=== PATIENT | female | born 1955 | race Caucasian/White ===

== ENCOUNTER 2017-08-18 14:08 | Outpatient (CLI) | payer BC ==
[~2017-08-18] VITALS: Ht 160 cm; Wt 65.9 kg
[~2017-08-18 14:08] MED LIST: ADRIAMYCIN; CALAN SR180 MG PO; CALTRATE-600 W600 MG PO; COMPAZINE 110 MG/TAB PO; CRESTOR10 MG PO; CRESTOR20 MG PO; CYTOXAN; DEXAMETHASONE4 MG PO; EMEND; FEMARA PO; FERROUS SULFAT325 MG PO; FISH OIL CONC1000 MG PO; LEVAQUIN 5500 MG/TAB PO; MVI; MVI PO; NEULASTA6 MG/0.6 M SC; SYNTHROID0.05 MG/TA PO; TAXOTERE; TRIAMTERENE AND1 TA1 PO; VISION FORMULA; VITAMIN C500 MG PO; ZETIA10 MG PO; ZOFRAN 8MG8 MG PO; ZOMETA4 MG/5 ML IV
[2017-08-18] MEDS ORDERED: HCTZ 25MG TAB25 MG PO (14:38)
[2017-08-18] MEDS ORDERED: LOPRESSOR 225 MG/TAB PO (14:38)
[2017-08-18] MEDS ORDERED: PRINIVIL20 MG PO (14:39)
[2017-08-18] MEDS ORDERED: EFFEXOR 75M75 MG/TAB PO (14:39)
[2017-08-18] MEDS ORDERED: SYNTHROID0.075 MG/T PO (14:40)
[2017-08-18] MEDS ORDERED: IBRANCE125 MG PO (14:41)
[2017-08-18] MEDS ORDERED: FASLODEX250 MG/5 M IM (14:43)
[2017-08-18 15:00] VITALS: BP 118/64; PULSE 72; TEMP 98
== END 2017-08-18 16:50 | disposition home health service (06) ==
LOC: EUO 14:08
DX: C50.012 Malignant neoplasm of nipple and areola, left female breast (principal); R11.10 Vomiting, unspecified; E86.0 Dehydration
CPT/HCPCS: J7030

== ENCOUNTER 2018-09-16 19:57 | Emergency (ER) | payer BC ==
[~2018-09-16] VITALS: Ht 160 cm; Wt 70.5 kg
[~2018-09-16 19:57] MED LIST changes: +EFFEXOR 75M75 MG/TAB PO; +FASLODEX250 MG/5 M IM; +HCTZ 25MG TAB25 MG PO; +IBRANCE125 MG PO; +LOPRESSOR 225 MG/TAB PO; +PRINIVIL20 MG PO; +SYNTHROID0.075 MG/T PO
[2018-09-16 20:06] VITALS: TEMP 98
[2018-09-16 20:32] LABS: BASO # 0.1 (0.0-0.2); BASO % 0.8 % (0.0-2.0); EOS # 0.1 (0.0-0.7); GRAN # 3.3 (1.4-6.5); GRAN % 50.6 % (42.2-75.2); HEMATOCRIT 39.7 % (37.0-47.0); HEMOGLOBIN 14.3 g/dl (12.5-16.0); LYMPH # 2.4 (1.2-3.4); LYMPH % 35.9 % (20.0-51.0); MEAN CELL VOLUME 107 fl (80.0-100.0); MEAN CORPUSCULAR HEMOGLOBIN 39 pg (27.0-31.0); MEAN CORPUSCULAR HGB CONC 36 g/dl (33.0-37.0); MEAN PLATELET VOLUME 9.2 fl (7.4-10.4); MONO # 0.7 (0.1-0.6); MONO % 10.4 % (1.7-9.3); PLATELET COUNT 230 K/mm3 (130-400); REDCELL DISTRIBUTION WIDTH-CV 13.8 % (11.5-14.5)
[2018-09-16 20:36] LABS: INR 0.9 (0.8-3.0); PROTHROMBIN TIME 10.1 SECONDS (9.7-12.8)
[2018-09-16 20:39] LABS: ALANINE AMINOTRANSFERASE 61 U/L (9-52); ALBUMIN 4.8 gm/dL (3.5-5.0); ALKALINE PHOSPHATASE 81 U/L (50-136); ANION GAP 10 mmol/L (7-16); AST,SGOT 56 U/L (15-37); BILIRUBIN,TOTAL 0.4 mg/dL (0.0-1.0); BLOOD UREA NITROGEN 20 mg/dL (7-17); CARBON DIOXIDE 31 mmol/L (22-30); CHLORIDE 96 mmol/L (98-107); CREATININE, serum 0.61 mg/dL (0.52-1.25); GLUCOSE 128 mg/dL (74-106); POTASSIUM 3.3 mmol/L (3.4-5.0); SODIUM 137 mmol/L (137-145)
[2018-09-16 20:50] LABS: TROPONIN-I < 0.012 ng/mL (0.000-0.034)
[2018-09-16 21:16] LABS: TSH w REFLEX 0.168 uIU/mL (0.465-4.680)
[2018-09-16] MEDS ORDERED: MASON NATURAL1200 MG PO (21:27)
[2018-09-16] MEDS ORDERED: EPA FISH OIL1 SGL PO (21:28)
[2018-09-16] MEDS ORDERED: MULTIVITAMIN FO1 CAP PO (21:30)
[2018-09-16] MEDS ORDERED: VERELAN240 MG PO (21:31)
[2018-09-16] MEDS ORDERED: ALPHA LIPOIC A200 M2 PO (21:32)
[2018-09-16] MEDS ORDERED: BIOTIN 0.3 MG-21 TAB (21:33)
[2018-09-16] MEDS ORDERED: ASPIRIN 81M81 MG/TA2 PO (21:33)
[2018-09-16] MEDS ORDERED: COENZYME Q-10100 M1 PO (21:34)
[2018-09-16] MEDS ORDERED: XELODA500 MG (21:35)
[2018-09-16] MEDS ORDERED: magnesium glycinate (21:36)
[2018-09-16] MEDS ORDERED: RESVERATROL250 MG PO (21:37)
[2018-09-16] MEDS ORDERED: VITAMIN FLUSH-F1 CAP (21:37)
[2018-09-16] MEDS ORDERED: VITAMIN C500 MG PO (21:37)
[2018-09-16] MEDS ORDERED: ZINC PICOLINATE (21:39)
[2018-09-16 23:50] VITALS: BP 126/80; PULSE 76
== END 2018-09-16 23:50 | disposition home or self-care (01) ==
LOC: COL.ER 19:57
PROVIDERS: Emergency Medicine
DX: E87.6 Hypokalemia (principal); R00.2 Palpitations; C50.919 Malignant neoplasm of unspecified site of unspecified female breast; E78.5 Hyperlipidemia, unspecified; I10 Essential (primary) hypertension; Z79.82 Long term (current) use of aspirin; Z90.49 Acquired absence of other specified parts of digestive tract
CPT/HCPCS: J7030

== ENCOUNTER 2019-11-24 13:02 | Outpatient (CLI) | payer BC ==
[~2019-11-24] VITALS: Ht 160 cm; Wt 74.0 kg
[~2019-11-24 13:02] MED LIST changes: +ALPHA LIPOIC A200 M2 PO; +ASPIRIN 81M81 MG/TA2 PO; +COENZYME Q-10100 M1 PO; +EPA FISH OIL1 SGL PO; +MASON NATURAL1200 MG PO; +MERIBIN5 MG PO; +MULTIVITAMIN FO1 CAP PO; +RESVERATROL250 MG PO; +VERELAN240 MG PO; +VITAMIN FLUSH-F1 CAP; +XELODA500 MG; +ZINC PICOLINATE; +magnesium glycinate
[2019-11-24 13:14] VITALS: BP 114/51; PULSE 85; TEMP 98.6
[2019-11-24] MEDS ORDERED: MAG-G500 MG PO (13:25)
[2019-11-24] MEDS ORDERED: HALAVEN0.5 MG/ML IV (13:37)
[2019-11-24] MEDS ORDERED: GRANIX PO (13:38)
== END 2019-11-24 13:55 | disposition home or self-care (01) ==
LOC: EUO 13:02
DX: C50.512 Malignant neoplasm of lower-outer quadrant of left female breast (principal)
CPT/HCPCS: J1447